=== PATIENT | female | born 1990 | race Caucasian/White ===

== ENCOUNTER 2016-09-03 00:03 | Emergency (ER) | payer BC ==
[~2016-09-03] VITALS: Ht 160 cm; Wt 52.2 kg
[2016-09-03 00:40] VITALS: BP 114/78
[2016-09-03 01:07] LABS: APPEARANCE,URINE SLIGHTLY CLOUDY; KETONES,URINE 1+ (NEGATIVE); LEUKOCYTE ESTERASE ,URINE 3+ (NEGATIVE); NITRITE,URINE NEGATIVE (NEGATIVE); PH,URINE 6 (4.5-8.0); PROTEIN,URINE 3+ (NEGATIVE); UROBILINOGEN,URINE 4 MG/DL (0.0-1.0)
[2016-09-03 01:30] VITALS: BP 117/64
[2016-09-03 01:32] LABS: BACTERIA,URINE MODERATE /HPF; SQUAMOUS EPITHELIAL CELL,UR FEW /LPF (NONE/OCC); WBC,URINE TNTC /HPF (0 - 2)
[2016-09-03] MEDS ORDERED: PHENAZOPYRIDIN100 MG ORAL (01:36)
[2016-09-03] MEDS ORDERED: NITROFURANTOIN100 M2 ORAL (01:36)
[2016-09-03 01:45] VITALS: BP 117/64
[2016-09-03] MEDS ORDERED: Phenazopyridine 200mg tab ORAL ONE (01:45)
--- NOTE | 2016-09-03 05:06 | Emergency Room Report ---
History of Present Illness General Chief Complaint: Pelvic Pain Source: Patient Present Illness HPI 26YOF with 2 days dysuria, polyuria. History of frequent UTI. Sexually active with 1 partner. No history of STDs. Denies abd pain, flank pain, fever/chills , nausea/vomiting. Allergies: Uncoded Allergies: PENICILLIN (Allergy, Unknown, 09/03/16) Patient History Past Medical History: none Past Surgical History: none Pertinent Family History: none Social History: Denies: alcohol use, drug use, smoking Last Menstrual Period: 08/03/16 Now: No Immunizations: UTD Reviewed Nursing Documentation: PMH: Agreed, PSxH: Agreed Nursing Documentation-PMH Past Medical History: No Stated History Review of Systems All Other Systems: negative except mentioned in HPI Physical Exam Vital Signs Date Time Temp Pulse Resp B/P Pulse Ox O2 Delivery O2 Flow Rate FiO2 09/03/16 00:26 98.1 91 22 121/81 99 Room Air Sp02 EP Interpretation: reviewed, normal General Appearance: normal inspection, well appearing, no apparent distress, alert, GCS 15, non-toxic Head: normocephalic, atraumatic Eyes: bilateral eye EOMI, bilateral eye PERRL ENT: normal ENT inspection, hearing grossly normal, normal voice Neck: normal inspection, full range of motion, supple, no bony tend Respiratory: normal inspection, lungs clear, normal breath sounds, no respiratory distress, no retraction, no wheezing Cardiovascular #1: regular rate, rhythm, no edema Gastrointestinal: normal inspection, normal bowel sounds, non tender, soft, no guarding, no hernia Genitourinary: no CVA tenderness Musculoskeletal: normal inspection, back normal, normal range of motion, Mitzy' s Sign negative Neurologic: normal inspection, alert, oriented x3, responsive, forensic computer examiner III-XII nml as tested, motor strength/tone normal, speech normal Psychiatric: normal inspection, judgement/insight normal, mood/affect normal Skin: normal inspection Lymphatic: normal inspection Medical Decision Making Diagnostic Impression: Primary Impression: UTI (urinary tract infection) Qualified Codes: N30.00 - Acute cystitis without hematuria ER Course Not UA grossly infected Rx Macrobid, Pyridium Low suspicion for pyelo, systemic illness given VSS, no abd pain, flank pain, and her well appearance Last Vital Signs Date Time Temp Pulse Resp B/P Pulse Ox O2 Delivery O2 Flow Rate FiO2 09/03/16 01:45 98.1 82 18 117/64 99 Room Air Status: improved Disposition: HOME, SELF-CARE Condition: Improved Scripts Nitrofurantoin Monohyd/M-Cryst* (MACROBID 100 MG*) 100 Mg Capsule 100 MG ORAL EVERY 12 HOURS for 7 Days, #14 CAP Prov: ESEQUIEL LIMON M.D. 09/03/16 Phenazopyridine Hcl* (PYRIDIUM*) 100 Mg Tablet 100 MG ORAL THREE TIMES A DAY for 2 Days, #10 TAB Prov: ESEQUIEL LIMON M.D. 09/03/16 Referrals: [facility],REFERRING (PCP) ESEQUIEL LIMON M.D. Sep 03, 2016 05:06
== END 2016-09-03 01:50 | disposition home or self-care (01) ==
LOC: EMR 00:45
DX: N30.00 Acute cystitis without hematuria (principal); Z88.0 Allergy status to penicillin
CPT/HCPCS: 81003; 81025; 87086; 87181; 99284

== ENCOUNTER 2017-03-12 18:16 | Emergency (ER) | payer BC ==
[~2017-03-12] VITALS: Ht 162.6 cm; Wt 54.4 kg
[~2017-03-12 18:16] MED LIST: NITROFURANTOIN100 M2 ORAL; PHENAZOPYRIDIN100 MG ORAL
[2017-03-12 18:27] VITALS: BP 101/62
[2017-03-12 18:54] LABS: APPEARANCE,URINE CLEAR; KETONES,URINE 1+ (NEGATIVE); LEUKOCYTE ESTERASE ,URINE 1+ (NEGATIVE); NITRITE,URINE NEGATIVE (NEGATIVE); PH,URINE 9 (4.5-8.0); PROTEIN,URINE 1+ (NEGATIVE); UROBILINOGEN,URINE NORMAL MG/DL (0.0-1.0)
[2017-03-12 19:01] LABS: BACTERIA,URINE FEW /HPF; RBC,URINE 0-2 /HPF (0 - 2); SQUAMOUS EPITHELIAL CELL,UR FEW /LPF (NONE/OCC)
--- NOTE | 2017-03-12 19:29 | Emergency Room Report ---
History of Present Illness General Chief Complaint: Abdominal Pain Source: Patient Present Illness HPI 26-year-old female presents to the emergency department complaining of nausea, vomiting and one episode of diarrhea since last night. Patient states that she was drinking in addition to eating dinner and believes she may have gotten food poisoning. Patient denies fevers, chills, blood in the vomit or stool, denies dark tarry stools. Patient reports 10 out of 10 in severity abdominal cramping and increased flatulence. Patient reports feeling dizzy after several episodes of vomiting this morning the dizziness has resolved. Patient reports she has been trying to drink water and eat soup however she is unable to keep anything down. Patient denies . Denies head injury or trauma. Denies recent travel or ill contacts with similar symptoms . Denies rashes. Denies CP, Palpitations, LOC, AMS, dizziness, Changes in Vision, Sensation, paresthesias, or a sudden severe headache. Allergies: Uncoded Allergies: PENICILLIN (Allergy, Unknown, 09/03/16) Patient History Past Medical History: see triage record Past Surgical History: none Pertinent Family History: none Last Menstrual Period: on control Now: No Reviewed Nursing Documentation: PMH: Agreed, PSxH: Agreed Nursing Documentation-PMH Past Medical History: No Stated History Review of Systems All Other Systems: negative except mentioned in HPI Physical Exam Vital Signs Date Time Temp Pulse Resp B/P (MAP) Pulse Ox O2 Delivery O2 Flow Rate FiO2 03/12/17 18:27 98.1 85 18 101/62 100 Room Air Sp02 EP Interpretation: reviewed, normal General Appearance: alert, GCS 15, non-toxic, mild distress Head: normocephalic, atraumatic Eyes: bilateral eye normal inspection, bilateral eye PERRL ENT: hearing grossly normal, normal voice Neck: full range of motion Respiratory: lungs clear, normal breath sounds, speaking full sentences Cardiovascular #1: regular rate, rhythm Gastrointestinal: normal bowel sounds - normal to hyperactive bowel sounds in all 4 quadrants, non tender, soft, no rebound, tenderness - some generalized ttp primarily in the upper quadrants, negative mcburny's point ttp. Rectal: deferred Genitourinary: normal inspection, no CVA tenderness Musculoskeletal: back normal, gait/station normal Neurologic: alert, oriented x3, responsive, motor strength/tone normal, sensory intact, normal gait, speech normal Skin: normal color, no rash, warm/dry, well hydrated Medical Decision Making PA Attestation Dr. Meeks is my supervising Physician whom patient management has been discussed with. Diagnostic Impression: Primary Impression: Nausea vomiting and diarrhea ER Course 26-year-old female presents to the emergency department complaining of nausea, vomiting and one episode of diarrhea since last night. Patient states that she was drinking in addition to eating dinner and believes she may have gotten food poisoning. Patient denies fevers, chills, blood in the vomit or stool, denies dark tarry stools. Patient reports 10 out of 10 in severity abdominal cramping and increased flatulence. Patient reports feeling dizzy after several episodes of vomiting this morning the dizziness has resolved. Patient reports she has been trying to drink water and eat soup however she is unable to keep anything down. Patient denies . Denies head injury or trauma. Denies recent travel or ill contacts with similar symptoms . Denies rashes. Denies CP, Palpitations, LOC, AMS, dizziness, Changes in Vision, Sensation, paresthesias, or a sudden severe headache. Ddx considered but are not limited to GE, colitis, acute appy, SBO, Cyclical Vomiting secondary to THC, * Vital signs: pt. is afebrile, H&PE are most consistent with gastroenteritis ORDERS: -None required at this time, the dx is clinical. -Urine Hcg: Negative -UDS: Negative ED INTERVENTIONS: -Zofran 4mg -Zantac 150mg PO -GI Cocktail -Toradol IM Pt able to tolerate oral fluids and reports improvement of her symptoms. d/w pt. that she will be d/c with anti-emetic, but to limit oral intake to fluids or [place] foods / BRAAT diet. d/w pt to follow up with PCP, or return promptly to the ED with any worsening or new symptoms. DISCHARGE: At this time pt. is stable for d/c to home. Will provide printed patient care instructions, and any necessary prescriptions. Care plan and follow up instructions have been discussed with the patient prior to discharge. Labs Test 03/12/17 18:35 Urine Color Yellow Urine Appearance Clear Urine pH 9 (4.5-8.0) Urine Specific [place] 1.010 (1.005-1.035) Urine Protein 1+ (NEGATIVE) Urine Glucose (UA) Negative (NEGATIVE) Urine Ketones 1+ (NEGATIVE) Urine Occult Blood Negative (NEGATIVE) Urine Nitrite Negative (NEGATIVE) Urine Bilirubin Negative (NEGATIVE) Urine Urobilinogen Normal MG/DL (0.0-1.0) Urine Leukocyte Esterase 1+ (NEGATIVE) Urine RBC 0-2 /HPF (0 - 2) Urine WBC 2-4 /HPF (0 - 2) Urine Squamous Epithelial Cells Few /LPF (NONE/OCC) Urine Bacteria Few /HPF (NONE) Urine HCG, Qualitative Negative Urine Opiates Screen Negative (NEGATIVE) Urine Barbiturates Screen Negative (NEGATIVE) Phencyclidine (PCP) Screen Negative (NEGATIVE) Urine Amphetamines Screen Negative (NEGATIVE) Urine Benzodiazepines Screen Negative (NEGATIVE) Urine Cocaine Screen Negative (NEGATIVE) Urine Marijuana (THC) Screen Negative (NEGATIVE) Last Vital Signs Date Time Temp Pulse Resp B/P (MAP) Pulse Ox O2 Delivery O2 Flow Rate FiO2 03/12/17 18:27 98.1 85 18 101/62 100 Room Air Disposition: HOME, SELF-CARE Condition: Stable Scripts Ranitidine Hcl* (ZANTAC*) 150 Mg Tablet 150 MG ORAL TWICE A DAY for 10 Days, #20 TAB Prov: Carol Velez 03/12/17 Ondansetron Odt* (ZOFRAN ODT*) 4 Mg Tab.rapdis 4 MG ORAL Q6H Y for Nausea & Vomiting, #20 TAB Prov: Carol Velez. 03/12/17 Referrals: [facility],REFERRING (PCP) Patient Instructions: Abdominal Pain, Adult, Nausea and Vomiting, Adult, Easy- to-Read Additional Instructions: Take medications as directed. Follow up with a Primary Care Provider in 3-5 days, even if your symptoms have resolved. --Please review list of primary care clinics, if you do not already have a primary care provider Return sooner to ED if new symptoms occur, or current symptoms become worse. - Please note that this Emergency Department Report was dictated using [employer] justice teacher technology software, occasionally this can lead to erroneous entry secondary to interpretation by the dictation equipment. Carol Velez Mar 12, 2017 19:29
[2017-03-12] MEDS ORDERED: Mylanta II UD 30ml ORAL ONE (19:30)
[2017-03-12] MEDS ORDERED: Dicyclomine HCl 10mg/5ml oral soln ORAL ONE (19:30)
[2017-03-12] MEDS ORDERED: Lidocaine 2% Visc 15ml soln ORAL ONE (19:30)
[2017-03-12] MEDS ORDERED: Ketorolac 60mg Inj IM ONE (19:30)
[2017-03-12] MEDS ORDERED: ZOFRAN ODT4 MG ORAL (20:04)
[2017-03-12] MEDS ORDERED: ZANTAC150 MG ORAL (20:04)
[2017-03-12 20:15] VITALS: BP 104/62
[2017-03-12 20:17] VITALS: BP 101/62
== END 2017-03-12 20:17 | disposition home or self-care (01) ==
LOC: EMR 19:25
DX: R11.2 Nausea with vomiting, unspecified (principal); R19.7 Diarrhea, unspecified; Z88.0 Allergy status to penicillin
CPT/HCPCS: 80307; 81003; 81025; 96372; 99284